=== PATIENT | female | born 1970 | race Caucasian/White ===

== ENCOUNTER 2017-11-03 08:49 | Emergency (ER) | payer BC ==
[~2017-11-03] VITALS: Ht 165.1 cm; Wt 139.7 kg
[2017-11-03 09:27] LABS: HEMATOCRIT 37.1 % (36.0-46.0); HEMOGLOBIN 11.9 G/DL (11.9-15.5); MCH 25.6 PG (29.0-34.0); MCHC 32.1 G/DL (30.0-36.0); MCV 79.8 FL (83-99); PLATELET COUNT 302 K/uL (156-360); RBC DIS.WIDTH-CV 15.5 % (11.8-14.6); RBC DIS.WIDTH-SD 44.2 % (39-53); RED BLOOD COUNT 4.65 M/uL (3.80-5.20); WHITE BLOOD COUNT 8.8 K/uL (4.1-10.2)
[2017-11-03 09:38] LABS: ALBUMIN 3.5 g/dL (3.2-4.8)
[2017-11-03 09:39] LABS: CHLORIDE 103 mEq/L (99-109); SODIUM 137 mEq/L (136-147)
[2017-11-03 09:41] LABS: GLUCOSE 142 mg/dL (70-99); TOTAL PROTEIN 7.1 g/dL (6.4-8.3)
[2017-11-03 09:43] LABS: TOTAL BILIRUBIN 0.3 mg/dL (0.0-1.0)
[2017-11-03 09:44] LABS: ALKALINE PHOSPHATASE 70 IU/L (3-129)
[2017-11-03 09:45] LABS: CREATININE 0.8 mg/dL (0.6-1.3); GFR ESTIMATE (CALCULATED) > 59 mL/min/
[2017-11-03 09:46] LABS: AST (GOT) 12 IU/L (2-34); DIRECT BILIRUBIN 0.2 mg/dL (0.0-0.3); UREA NITROGEN (BUN) 10 mg/dL (9-23)
[2017-11-03 09:48] LABS: ALT (GPT) 14 IU/L (3-49); LIPASE 16 U/L (1.0-51.0)
[2017-11-03 09:49] LABS: TROP-I INTERPRETATION NEGATIVE; TROPONIN-I < 0.01 ng/mL (0.0-0.30)
[2017-11-03 12:19] LABS: TROP-I INTERPRETATION NEGATIVE; TROPONIN-I < 0.01 ng/mL (0.0-0.30)
[2017-11-03 12:46] VITALS: BP 150/81
== END 2017-11-03 13:02 | disposition home or self-care (01) ==
LOC: EME 08:49
PROVIDERS: Emergency Medicine
DX: R07.89 Other chest pain (principal); R14.2 Eructation
CPT/HCPCS: 71045; 80048; 80076; 83690; 83880; 84484; 85027; 93005; 99281; 99285